=== PATIENT | female | born 1985 | race African-American/Black ===

== ENCOUNTER 2016-07-04 23:12 | Emergency (ER) | payer OTHER ==
--- NOTE | ~2016-07-04 | CR126 ---
[facility] A Service [facility] RADIOLOGY TEXT RESULTS PATIENT: WANDY PRATER LOCATION: [facility] : [birth year] UNIT #: [id number] AGE: [address]: Portia Burger MD SEX: F ORDER DR: [id number] [address] [address] [id number] E MR#: [id number] Acc #: [id number] NAME: WANDY PRATER : 1985 SEX: F STUDY DATE/TIME: 07/04/2016 23:41 UNIT: [facility] ROOM: STUDY DESCRIPTION: CR Foot Complete Min 3 View Lt Attending Physician: Portia Burger M.D. Ordering Physician: Portia Burger M.D. Primary Care Physician: [facility], [facility]. MEDICAL IMAGING REPORT This report is preliminary unless electronic signature is present EXAM 3 views of the left foot. DATE 07/04/2016 HISTORY Medial left foot pain for 2 months. No known injury. COMPARISON None. FINDINGS The tarsal, metatarsal, and phalangeal elements are all anatomically normal in position and alignment. There are no articular defects. No fractures or radiopaque foreign bodies in the soft tissues are apparent. IMPRESSION Normal foot. Dictated by... Nichelle Craft M.D. THIS IS AN ELECTRONICALLY VERIFIED REPORT Nichelle Craft M.D. at 07/05/2016 10:26 PM [facility]/jane TD: 07/05/2016 11:46 JOB #: [id number] MEDICAL IMAGING REPORT [facility] A Service of [facility] RADIOLOGY TEXT RESULTS PATIENT: WANDY PRATER LOCATION: [facility] : [birth year] UNIT #: [id number] AGE: [address]: Portia Burger MD SEX: F ORDER DR: COPY
[~2016-07-04 23:12] MED LIST: DEBROX15 M1 OT
== END 2016-07-05 00:39 | disposition home or self-care (01) ==
LOC: CED 23:12
DX: M79.671 Pain in right foot (principal)
CPT/HCPCS: 29515; 73630; 99283